=== PATIENT | female | born 1945 | race Caucasian/White ===

== ENCOUNTER 2018-08-23 12:10 | Emergency (ER) | payer MEDICARE, OTHER ==
[2018-08-23 12:33] VITALS: BP 153/96
[2018-08-23] MEDS ORDERED: ERYTHROMYCIN OPHTH OINT 1 GM TUBE LEFTEYE STA (13:00)
[2018-08-23] MEDS ORDERED: cephALEXin 250 MG CAPSULE PO STA (13:00)
--- NOTE | 2018-08-23 13:06 | ED Physician Documentation ---
PD HPI LOWER EXT INJURY - Stated complaint Stated Complaint: L WRIST SWELLING/EYE IRRITATION - Chief complaint Chief Complaint: Ext Problem - History obtained from History obtained from: Patient - History of Present Illness PD HPI LOW EXT INJURY LOCATION: Other (She has 2 issues, since yesterday she has had swelling and pain of the left inferior eyelid with some conjunctivitis but no visual difficulty. She does not wear contacts. She also notes that since falling about a month ago she has had anterior and lateral left knee pain with popping and difficulty walking. She also notes that since her shoulder surgery for about the last week and a half she has had swelling of the left wrist and forearm that is painful but declines pain medication there.) Review of Systems Constitutional: denies: Fever, Myalgias Cardiac: denies: Chest pain / pressure, Palpitations Respiratory: denies: Dyspnea, Cough PD PAST MEDICAL HISTORY - Past Medical History Cardiovascular: None Respiratory: None, Sleep apnea Endocrine/Autoimmune: None GI: None CHOCOLATE PACKER: None : None HEENT: None Psych: None Musculoskeletal: Osteoarthritis, Osteoporosis Derm: None - Past Surgical History Past Surgical History: Yes General: Colonoscopy /CHOCOLATE PACKER: LEEP (Cervical surgery) Cardiovascular: CABG Neuro: Craniotomy HEENT: Cataracts Derm: Skin cancer surgery - Present Medications Home Medications: Ambulatory Orders Medication Instructions Recorded Confirmed Cephalexin [Keflex] 500 mg PO Q6H #28 capsule 08/23/18 Erythromycin Base [Erythromycin 1 appful OP 5XD 7 Days #1 oint...g. 08/23/18 Ophthalmic Ointment] Fluticasone [Flonase] 1 inh INH DAILY 08/23/18 08/23/18 Hydrocodone/Acetaminophen 1 tab ORAL DAILY 08/23/18 08/23/18 [Hydrocodone-Acetamin 5-325 mg] Loratadine [Claritin] 1 cap ORAL DAILY 08/23/18 08/23/18 - Allergies Allergies/Adverse Reactions: Allergies Allergy/AdvReac Type Severity Reaction Status Date / Time pseudoephedrine HCl * Allergy Hives Verified 08/23/18 12:33 [From Sudafed] propoxyphene HCl * AdvReac Hallucinati Verified 08/23/18 12:33 [From Darvon] ons - Social History Does the pt smoke?: No Smoking Status: Never smoker Does the pt drink ETOH?: Yes Does the pt have substance abuse?: No - Immunizations Immunizations: TDAP >10years/unknown PD ED PE NORMAL - Vitals Vital signs reviewed: Yes - General General: Alert and oriented X 3, No acute distress - HEENT HEENT: Other (There is an internal stye on the mid to left inner eyelid lower with swelling of the eyelid and mild reactive conjunctivitis.) - Extremities Extremities: Other (She does have swelling of the left forearm and left wrist with mildly limited range of motion of the wrist but no real tenderness. There is no evidence of infetcion.) - Neuro Neuro: Alert and oriented X 3, Normal speech Results - Vitals Vitals: Vital Signs - 24 hr 08/23/18 12:28 Temperature 37.2 C Heart Rate 93 Respiratory 16 Rate Blood Pressure 153/96 H O2 Saturation 97 Oxygen O2 Source Room air Departure - Departure Disposition: 01 Home, Self Care Clinical Impression: Left arm swelling Internal hordeolum of left eye Qualifiers: Eyelid: lower Qualified Code(s): H00.025 - Hordeolum internum left lower eyelid Condition: Good Record reviewed to determine appropriate education?: Yes Instructions: ED [facility] Follow-Up: Carlos Armenta MD [Provider Admit Priv/Credential] - Within 3 Days Prescriptions: Cephalexin [Keflex] 500 mg PO Q6H #28 capsule Erythromycin Base [Erythromycin Ophthalmic Ointment] 1 appful OP 5XD 7 Days #1 oint...g. Comments: Your blood pressure was elevated today on check into the emergency department. This does not mean that you have hypertension, it is a common phenomenon to come to the emergency department and have elevated blood pressure. I recommend that you see your primary care physician within the week to have it rechecked when you are feeling better.
--- NOTE | 2018-08-23 14:30 | Ultrasound Report ---
Reason: LUE swelling post op Procedure Date: 08/23/2018 Accession Number: [id number] / [id number] Procedure: US - Duplex Ext Veins Left CPT Code: FULL RESULT: EXAM: LEFT UPPER EXTREMITY VENOUS ULTRASOUND EXAM DATE: 08/23/2018 02:10 PM. CLINICAL HISTORY: LUE swelling post op. COMPARISON: None. TECHNIQUE: Real-time sonographic vascular imaging was performed by the forest science professor through the upper extremity utilizing both color-flow and Doppler spectral analysis. Multiple apprenticeship representative static images were saved for review. FINDINGS: Internal Jugular Vein (IJV): Normal. Subclavian Vein (SCV): Normal. Axillary Vein : Normal. Cephalic Vein (superficial vein): Compressible without visualized thrombus. Basilic Vein (superficial vein): Normal. Brachial Vein: Normal. Other: None. IMPRESSION: No thrombosis visualized in the left upper extremity. RADIA
== END 2018-08-23 14:38 | disposition home or self-care (01) ==
LOC: ED 12:10
DX: H00.025 Hordeolum internum left lower eyelid (principal); M79.89 Other specified soft tissue disorders
CPT/HCPCS: 93971; 99283; A9270; J3490

== ENCOUNTER 2022-10-03 09:54 | Outpatient (CLI) | payer MEDICARE, OTHER ==
--- NOTE | 2022-10-03 11:22 | SLEEP CARE CONSULTATION ---
Information from patient questionnaire entered by Laz Hood. I have reviewed and concur with the information entered by Laz Hood. This document represents the service I personally performed and the decisions made by me, Saundra Ibarra ARNP. History of Present Illness Service Date and Time: 10/03/2022 0954 Reason for Visit: New patient, sleep apnea on CPAP therapy Chief Complaint: reports: Unrefreshed sleep, Snoring, Excessive daytime sleepiness, Observed pauses in breathing, Other (UPDATE SUPPLIES) Date of Onset: 10YRS Usual bedtime: 10PM Time it takes to fall asleep: 60MIN Snores at night: Yes Observed to quit breathing while asleep: Yes Sleeps alone due to snoring: No Number of times waking at night: 3 Reasons for waking at night: reports: Choking, Snoring, Gasping for air, Pain, Bathroom Toss, Turn, or Twitch while sleeping: Yes Recalls having dreams: Yes Usually gets out of bed at: 8AM Feels refreshed in the morning: Yes Morning headache: No Sleepy or fatigued during the day: Yes Ever fallen asleep while driving: No Takes day naps: No Dreams during day naps: No Prior sleep studies: Yes Year and Where: 2014 [facility] Additional HPI information: TERRI WALKER was previously diagnosed to have moderate, AHI 18, obstructive sleep apnea-hypopnea syndrome as seen in a sleep study dated 11/23/2014 through [facility] and comes in today to establish care for CPAP therapy. - Parasomnia Symptoms Ever been unable to move upon waking from sleep: No Walks in sleep: No Talks in sleep: No Ever acted out dreams in sleep: No Ever felt weak in the knees when startled or emotional: No Bothered by creepy, crawly, restless sensations in legs: No Problems with memory or concentration: Yes CPAP Compliance Data Compliance data discussion: She states she has a ResMed Airsense machine but she did not bring it or her SD card for download today. She is getting her supplies from [employer] in [place]. She has a ResMed full face mask, Resmed AirFit F20. She does have a back up mask and changes her cushion regularly. Subjective Patient concerns: reports: mask leak noise, dry mouth, nose, throat (she will oral vent at night ). denies: aerophagia, mask discomfort, air blowing in eyes, condensation in mask/hose, nasal congestion, epistaxis Observed to snore while using device: No Current pressure setting perceived as: comfortable On therapy, patient: reports: sleeping better, awakening more refreshed, being more awake and alert during the day, more rested overall. denies: drowsiness while driving Initial [place] Sleepiness Scale score: 4 (10/03/22) Past Medical History Past Medical History: reports: Hypertension, Claustrophobia, Arthritis Social History The patient's occupation is a RE. Patient is and lives in [place]. Have you smoked in the past 12 months: No Alcohol use: Yes Alcohol amount and frequency: 1 GLASS WINE DAILY Caffeine use: No Family History Family history of sleep disordered breathing: Yes Family Hx Sleep Apnea: Sibling: Snoring, Sleep apnea - Treated Allergies and Home Medications Known drug allergies: Yes (as listed) Drug allergies reviewed: Yes Home medication list reviewed: Yes Allergy and home medication list: Allergies pseudoephedrine HCl * [From Sudafed] Allergy (Verified 10/02/22 16:16) Hives propoxyphene HCl * [From Darvon] Adverse Reaction (Verified 10/02/22 16:16) Hallucinations Medications: Loratidine Motrin Cyclobenzaprine, prn vitamins - D, multi, B, Calcium Cod liver oil Review of Systems Weight loss over past 5 years: 17 Cardiovascular: reports: high blood pressure, chest pain, leg or foot swelling Respiratory: reports: shortness of breath Gastrointestinal: reports: difficulty swallowing Neurological: denies: headaches Psychiatric: reports: claustrophobia. denies: anxiety, depression Ear/Nose/Throat: reports: nasal congestion, sinus problems, dry mouth/throat, injury to nose Endocrine: reports: sluggishness, too hot or cold, increased urination Musculoskeletal: reports: joint pain, neck pain, back pain, joint swelling, muscle pain or cramping Immunologic: reports: sneezing, itching, allergies to food or environment Physical Exam Vital signs obtained and entered by: LAZ Calero MA Blood Pressure: 124/72 (LEFT ARM) Cuff size: regular Heart Rate: 81 O2 Saturation: 95 Height: 5 ft 2 in Weight: 174 lb 9.6 oz Body Mass Index: 31.9 BMI Classification: Obese Neck circumference: 15.5 Heart: regular rate and rhythm Lungs: clear bilaterally Impression and Plan 1. Obstructive Sleep Apnea-Hypopnea Syndrome, moderate, with unknown treatment compliance and unknown apnea control. On CPAP therapy, the patient has better sleep quality and is more rested overall. She did not bring in her SD card or machine, so I do not have any data of her pressures settings or therapy. She states she can bring in the SD card tomorrow for us to get the download. Once I have the therapy data, I will update her DME supply prescription. As long as she has good compliance and a well controlled residual AHI, I will follow up with her in a year. She voiced understanding and agreement with plan. Patient's apnea severity and rationale for treatment to reduce apnea, improve sleep quality and reduce cardiovascular and cerebrovascular events was reviewed. I also reviewed the benefit of consistent device use of CPAP for hypertension. * Continue auto CPAP pressure at unknown cmH2O * Update supply prescription * Notify me if snoring with mask or feeling that the pressure is too much or too little * Attempt to lose weight * Call this office if any problems using CPAP * Return for follow up in 1 year, or sooner if concerns arise Counseling Topics: Spare mask, Weight loss health impact Visit Type: In Office Time Spent with Patient (minutes): 30 Provider Statement: I spent 100% of the Face to Face Visit with the patient with greater than 50% spent counseling the patient and coordination of care.
[2022-10-03 11:23] VITALS: BP 124/72
== END 2022-10-03 09:55 | disposition home or self-care (01) ==
LOC: SC 09:54
PROVIDERS: ATTEND Nurse Practitioner Family
DX: G47.33 Obstructive sleep apnea (adult) (pediatric) (principal); E66.9 Obesity, unspecified; Z68.31 Body mass index [BMI] 31.0-31.9, adult
CPT/HCPCS: 99203; G0463; 99212

== ENCOUNTER 2023-09-10 12:47 | Outpatient (CLI) | payer MEDICARE, OTHER ==
--- NOTE | 2023-09-10 13:25 | Sleep Patient Instructions ---
Sleep Center Visit Summary - Patient Visit Information Reason for Visit: 11 month follow-up - Patient Instructions Additional Instructions: You will continue with CPAP therapy with pressure set at 9-17 cmH2O. A supply prescription will be updated with your DME. I have added an order to update your PAP machine. Please call the office to schedule a compliance follow up once you get your new device. We encourage you to continue to try to lose weight. Please follow up with the sleep care office one month after obtaining new device. - Clinic Information Contact: [facility] [address] [place] [address] [email or web address] T: [phone]
--- NOTE | 2023-09-10 13:32 | SLEEP CARE CONSULTATION ---
Information from patient questionnaire entered by Laz Hood. I have reviewed and concur with the information entered by Laz Hood. This document represents the service I personally performed and the decisions made by , Saundra Ibarra ARNP. History of Present Illness Service Date and Time: 09/10/2023 1247 Previous diagnosis: Moderate, Obstructive Sleep Apnea-Hypopnea Syndrome AHI: 18 (on 11/23/2014) Reason for follow up: other (11 MONTH F/U) Equipment type: CPAP (RESMED Airsense 10, s/u 10/22/2016) Equipment obtained from: [employer] ([employer]) Mask style: Full face Mask brand: Resmed (AirFit F20) Backup mask available: Yes Last cushion change: 1 time a month Prior sleep studies: Yes Year and Where: 2014 [facility] additional information: TERRI WALKER was diagnosed to have moderate, AHI 18, obstructive sleep apnea- hypopnea syndrome and returned today for CPAP therapy 11 month follow-up. Sleep Study - Results Prior sleep studies: Yes Year and Where: 2014 [facility] CPAP Compliance Data - Data Reviewed with Patient Average duration of nightly device use: 5 HRS 45 MINS Compliance rate %: 77 (10/04/22-09/03/23; 308/335 days used) Current pressure setting (cmH2O): 9-17 Average residual AHI: 1.4 Central apnea: 0.1 Obstructive apnea: 0.7 Average large leak: 4 L/min Subjective Missed days of use due to: reports: mask issues (full face leaks when on side; back/shoulder pain issues, hard to find comfortable position), travel, other (unable to breathe lying on back, side sleep) Patient concerns: reports: air blowing in eyes, mask leak noise, nasal congestion (has all the time, not just with CPAP), dry mouth, nose, throat, other (wake up from stopping breathing). denies: aerophagia, mask discomfort, condensation in mask/hose, epistaxis Observed to snore while using device: No Current pressure setting perceived as: comfortable On therapy, patient: reports: sleeping better, awakening more refreshed, being more awake and alert during the day, more rested overall. denies: drowsiness while driving Initial [place] Sleepiness Scale score: 4 (10/03/22) Current [place] Sleepiness Scale score: 10 (09/10/23) Allergies and Home Medications Known drug allergies: Yes (as listed) Drug allergies reviewed: Yes Home medication list reviewed: Yes (no changes) Allergy and home medication list: Allergies pseudoephedrine HCl * [From Sudafed] Allergy (Verified 09/04/23 11:53) Hives propoxyphene HCl * [From Darvon] Adverse Reaction (Verified 09/04/23 11:53) Hallucinations Review of Systems Review of systems same as previous: Yes (NO CHANGE) Physical Exam Vital signs obtained and entered by: LAZ Calero MA Blood Pressure: 141/78 (RIGHT ARM) Cuff size: long Heart Rate: 84 O2 Saturation: 99 Height: 5 ft 2 in Weight: 180 lb Body Mass Index: 32.9 BMI Classification: Obese Impression and Plan 1. Obstructive Sleep Apnea-Hypopnea Syndrome, moderate, with good treatment compliance and good apnea control. On CPAP therapy, the patient has better sleep quality and is more rested overall. She last updated her CPAP in 2017. She says she will update her machine if she can get a machine that does not have 5G. She has heard that they may emit radiation and she does not want this near her head. The patients CPAP is over 5 years old and of reasonable use. Thus, the CPAP will be updated. The new CPAPs also have a better humidity system which could assist control of patients dryness symptoms. A DWO prescription will be made. Compliance guidelines for new device and follow up discussed. Patient's apnea severity and rationale for treatment to reduce apnea, improve sleep quality and reduce cardiovascular and cerebrovascular events was reviewed. I also reviewed the benefit of consistent device use of CPAP for hypertension. 2. Obesity, unspecified. Currently patients BMI is 32.9. Obesity increases the risk of apnea, CPAP pressure requirements and overall health risks especially cardiovascular and diabetes. Thus patient is advised to lose weight. * Continue auto CPAP pressure at 9-17 cmH2O * Update Machine * Update supply prescription * Notify me if snoring with mask or feeling that the pressure is too much or too little * Attempt to lose weight * Call this office if any problems using CPAP * Return for follow up one month after obtaining new device, or sooner if concerns arise Counseling Topics: Spare mask, Weight loss health impact Prescriptions: Auto CPAP, Device supplies Visit Type: In Office Time Spent with Patient (minutes): 25 Provider Statement: I spent 100% of the Face to Face Visit with the patient with greater than 50% spent counseling the patient and coordination of care.
[2023-09-10 13:41] VITALS: BP 141/78; O2SAT 99
== END 2023-09-10 12:48 | disposition home or self-care (01) ==
LOC: SC 12:47
PROVIDERS: ATTEND Nurse Practitioner Family
DX: G47.33 Obstructive sleep apnea (adult) (pediatric) (principal); E66.9 Obesity, unspecified; Z68.32 Body mass index [BMI] 32.0-32.9, adult
CPT/HCPCS: 99213; G0463; 99212